=== PATIENT | female | born 1980 | race Caucasian/White ===

== ENCOUNTER → 2017-01-19 | Outpatient (CLI) | payer BC ==
--- NOTE | 2017-01-20 11:00 | VAS ---
HISTORY: Extremity pain, swelling, and edema Study: Left upper extremity Doppler venous ultrasound. TECHNIQUE: Multiple bautista scale and color flow Doppler images of the deep venous system were obtained of the upper extremity. FINDINGS: The deep venous system of the left upper extremity evaluated from the level of the internal jugular vein through the radial and ulnar veins. Normal color flow and augmentation can be observed . In addition, normal compression is seen throughout the upper extremity deep venous system. No soft tissue hematoma is seen. IMPRESSION: 1. Negative examination for DVT. Reported By:
== END ==
LOC: RAD 15:36
PROVIDERS: ATTEND Nurse Practitioner Family
DX: M79.602 Pain in left arm (principal); R22.32 Localized swelling, mass and lump, left upper limb
CPT/HCPCS: 93971

== ENCOUNTER 2017-07-18 20:44 | Observation (INO) | payer BC ==
--- NOTE | 2017-07-18 21:13 | DR.GENAD ---
HPI - PCP Primary Care Physician: NAEL - HPI Comment HPI Comment: PATIENT PCP GAVE HER PRESCRIPTION FOR MEDS BUT WORSE AND CAME TO ED. - Complaint/Symptoms Chief Complaint Doctors Comments: LUQ ABDOMINAL PAIN WITH N.V TIMES ONE DAY. PAIN GETTING WORSE. HISTORY DIVERTICULITIS. Chief Complaint:: PT CO LUQ PAIN NAUSEA NO VOMITING - Nurses notes reviewed Nurses Notes Review: Yes - Source History Provided: Patient - Mode of Arrival Mode of Arrival: Ambulatory - Timing Onset of Chief Complaint: 07/17/17 Came on: Suddenly - Duration Duration: Constant Duration: Days - Severity Severity: Moderate PMH - PMH Past Medical History: Yes Past Medical History: Hypertension, Hypothyroidism Past Medical History Comment: DIVERTICULITIS Past Surgical History: Yes Surgical History: - Family History History of Family Medical Conditions: Yes Family Medical History: Diabetes Mellitus, Cancer, [place], Coronary Artery Disease, Heart Failure, Hypertension - Social History Does patient currently use any type of tobacco product: No Have you used tobacco products in the last 12 months: No Type of Tobacco Use: None Does any household member use tobacco: No Alcohol Use: None Do you use any recreational Drugs:: No Lives With: Family Lives Where: Home - infectious screening In the last 2 months have you had wt loss of >10#?: NO Have you had fever, night sweats or hemotysis?: No Have you traveled outside the country in the last 6 months?: No Isolation: Standard ROS - Review of Systems Constitutional: No Symptoms Reported Eyes: No Symptoms Reported ENTM: No Symptoms Reported Respiratoy: No Symptoms Reported Cardiovascular: No Symptoms Reported Gastrointestinal/Abdominal: Abdominal Pain, Diarrhea, Nausea, Vomiting Genitourinary: No Symptoms Reported Neurological: No Symptoms Reported Musculoskeletal: No Symptoms Reported Integumentary: No Symptoms Reported Hematologic/Lymphatic: No Symptoms Reported Endocrine: No Symptoms Reported All Other Systems: Reviewed and Negative PE - Vital Signs Vitals: Temperature 98.2 F Pulse Rate 88 Respiratory Rate 18 Blood Pressure 128/70 O2 Sat by Pulse Oximetry 98 - General Limitations: No Limitations General Appearance: Alert - Head Head Exam: Normal Inspection - Eyes Eye exam: Normal Appearance - ENT ENT Exam: Normal External Ear Exam External Ear Exam: Normal External Inspection TM/Canal Exam: Bilateral Normal Nose Exam: Normal Nose Exam Mouth Exam: Normal Inspection Throat Exam: Normal Inspection - Neck Neck Exam: Trachea Midline - Chest Chest Inspection: Symmetric Chest Wall Rise - Respiratory Respiratory Exam: Normal Lung Sounds Bilat Respiratory Exam: Bilateral Clear to Auscultation - Cardiovascular Cardiovascular Exam: Regular Rate, Normal Rhythm, Normal Heart Sounds - Abdominal Exam Abdominal Exam: Normal Bowel Sounds, Soft. negative: Tenderness - Extremities Extremities Exam: Normal Inspection - Back Back Exam: Normal Inspection - Neurologic Neurological Exam: Alert, Oriented X3, CN II-XII Intact. negative: Motor Sensory Deficit - Psychiatric Psychiatric Exam: Normal Affect, Normal Mood - Skin Skin Exam: Normal Color MDM - Additional Information Additional Information Obtained From: Family - Differential Diagnosis Differential Diagnosis: ABDOMINAL PAIN, DEHYDRATION, DIVERTICULITIS, BOWEL OBSTRUCTION Course - Treatment Treatment: SEE ORDERS. - Consultation Consultation Comments: PATIENT ADMITTED TO DR SCHMIDT SERVICE. - Education/Counseling Education/Counseling: Patient, Family, Education Educated On: Treatment, Diagnosis, Needs for Follow Up ROR - Labs Reviewed Laboratory Results Reviewed?: Yes Result Diagrams: 07/19/17 05:43 07/19/17 05:43 Laboratory: WBC 18.0 X10^3/uL (3.6-10.0) H 07/18/17 21:05 RBC 4.29 X10^6/uL (3.5-5.4) 07/18/17 21:05 Hgb 12.5 g/dL (12.0-16.0) 07/18/17 21:05 Hct 36.9 % (36.0-47.0) 07/18/17 21:05 MCV 86.2 fL (80.0-100.0) 07/18/17 21:05 MCH 29.1 pg (27.0-34.0) 07/18/17 21:05 MCHC 33.8 g/dL (33.0-35.0) 07/18/17 21:05 RDW 14.0 % (11.6-16.5) 07/18/17 21:05 Plt Count 464 X10^3/uL (150.0-450.0) H 07/18/17 21:05 MPV 7.1 fL (7.4-11.0) L 07/18/17 21:05 Neut % (Auto) 59.7 % (42.0-75.0) 07/18/17 21:05 Lymph % (Auto) 33.6 % (21.0-51.0) 07/18/17 21:05 [place] % (Auto) 5.8 % (0.0-13.0) 07/18/17 21:05 Eos % (Auto) 0.4 % (0.9-2.9) L 07/18/17 21:05 Baso % (Auto) 0.5 % (0.2-1.0) 07/18/17 21:05 Neut # (Auto) 10.7 x10^3/uL (2.2-4.8) H 07/18/17 21:05 Lymph # (Auto) 6.0 X10^3/uL (1.3-2.9) H 07/18/17 21:05 [place] # (Auto) 1.0 x10^3/uL (0.3-0.8) H 07/18/17 21:05 Eos # (Auto) 0.1 x10^3/uL (0.0-0.2) 07/18/17 21:05 Baso # (Auto) 0.1 X10^3/uL (0.0-0.1) 07/18/17 21:05 Absolute Nucleated RBC 0.1 /100WBC 07/18/17 21:05 Sodium 136 mmol/L (136-145) 07/18/17 21:05 Corrected Sodium TNP 07/18/17 21:05 Potassium 3.8 mmol/L (3.5-5.1) 07/18/17 21:05 Chloride 100 mmol/L (98-107) 07/18/17 21:05 Carbon Dioxide 29.0 mmol/L (21-32) 07/18/17 21:05 BUN 15 mg/dL (7-18) 07/18/17 21:05 Creatinine 1.00 mg/dL (0.55-1.02) 07/18/17 21:05 Est GFR (MDRD) Af Amer > 60 (>60) 07/18/17 21:05 Est GFR (MDRD) Non-Af > 60 (>60) 07/18/17 21:05 Glucose 103 mg/dL (65-99) H 07/18/17 21:05 Calcium 8.0 mg/dL (8.5-10.1) L 07/18/17 21:05 Corrected Calcium TNP 07/18/17 21:05 Total Bilirubin 0.40 mg/dL (0.2-1.0) 07/18/17 21:05 AST 32 Units/L (15-37) 07/18/17 21:05 ALT 69 Units/L (12-78) 07/18/17 21:05 Alkaline Phosphatase 99 Units/L (46-116) 07/18/17 21:05 Total Protein 7.2 g/dL (6.4-8.2) 07/18/17 21:05 Albumin 3.4 g/dL (3.4-5.0) 07/18/17 21:05 Globulin 3.8 g/dL (2.5-4.5) 07/18/17 21:05 Albumin/Globulin Ratio 0.9 Ratio (1.1-2.1) L 07/18/17 21:05 Amylase 50 Units/L (25-115) 07/18/17 21:05 Lipase 160 Units/L (73-393) 07/18/17 21:05 Specimen Type Clean catch urine 07/18/17 22:14 Urine Color Yellow (YELLOW) 07/18/17 22:14 Urine Appearance Clear (CLEAR) 07/18/17 22:14 Urine pH 6.0 (5.0 - 8.0) 07/18/17 22:14 Ur Specific [place] 1.015 (1.000-1.030) 07/18/17 22:14 Urine Protein Negative (NEGATIVE) 07/18/17 22:14 Urine Glucose (UA) Negative (NEGATIVE) 07/18/17 22:14 Urine Ketones Negative (NEGATIVE) 07/18/17 22:14 Urine Occult Blood Negative (NEGATIVE) 07/18/17 22:14 Urine Nitrite Negative (NEGATIVE) 07/18/17 22:14 Urine Bilirubin Negative (NEGATIVE) 07/18/17 22:14 Urine Urobilinogen Normal (NORMAL) 07/18/17 22:14 Ur Leukocyte Esterase Negative (NEGATIVE) 07/18/17 22:14 H. pylori IgG Antibody Positive (NEGATIVE) A 07/18/17 21:05 - XRAY XRAY Interpreted by: Radiologist XRAY Findings: REPORT DISCUSS WITH PATIENT. - Diagnosis Discharge Problem: Helicobacter pylori ab+ Abdominal pain Qualifiers: Abdominal location: left upper quadrant Qualified Code(s): R10.12 - Left upper quadrant pain Leukocytosis Qualifiers: Leukocytosis type: unspecified Qualified Code(s): D72.829 - Elevated white blood cell count, unspecified - Discharge Plan Disposition: 09 ADMITTED INPATIENT Condition: Stable - Follow ups/Referrals - Instructions
[2017-07-18 21:23] LABS: BASOPHILS # (AUTO) 0.1 X10^3/uL (0.0-0.1); BASOPHILS % (AUTO) 0.5 % (0.2-1.0); EOSINOPHILS # (AUTO) 0.1 x10^3/uL (0.0-0.2); EOSINOPHILS % (AUTO) 0.4 % (0.9-2.9); HEMATOCRIT 36.9 % (36.0-47.0); HEMOGLOBIN 12.5 g/dL (12.0-16.0); LYMPHOCYTES % (AUTO) 33.6 % (21.0-51.0); MEAN CORPUSCULAR HEMOGLOBIN 29.1 pg (27.0-34.0); MEAN CORPUSCULAR HGB CONC 33.8 g/dL (33.0-35.0); MEAN CORPUSCULAR VOLUME 86.2 fL (80.0-100.0); MEAN PLATELET VOLUME 7.1 fL (7.4-11.0); MONOCYTES % (AUTO) 5.8 % (0.0-13.0); NEUTROPHILS # (AUTO) 10.7 x10^3/uL (2.2-4.8); NEUTROPHILS % (AUTO) 59.7 % (42.0-75.0); PLATELET COUNT 464 X10^3/uL (150.0-450.0); RED BLOOD COUNT 4.29 X10^6/uL (3.5-5.4)
[2017-07-18] MEDS ORDERED: NS 1000 ML 1,000 ML IV ONE (21:24)
[2017-07-18] MEDS ORDERED: ZOFRAN INJ 4 MG VIAL IVP ONE (21:24)
[2017-07-18] MEDS ORDERED: DEMEROL INJ IVP ONE (21:26)
[2017-07-18] MEDS ORDERED: NS 1000 ML 1,000 ML ONE (21:28)
[2017-07-18] MEDS ORDERED: DEMEROL INJ ONE (21:29)
[2017-07-18] MEDS ORDERED: ZOFRAN INJ 4 MG VIAL ONE (21:29)
[2017-07-18 21:35] LABS: ALANINE AMINOTRANSFERASE 69 Units/L (12-78); ALBUMIN 3.4 g/dL (3.4-5.0); ALKALINE PHOSPHATASE 99 Units/L (46-116); AMYLASE 50 Units/L (25-115); ASPARTATE AMINO TRANSFERASE 32 Units/L (15-37); BLOOD UREA NITROGEN 15 mg/dL (7-18); CHLORIDE 100 mmol/L (98-107); LIPASE 160 Units/L (73-393); SODIUM 136 mmol/L (136-145); TOTAL PROTEIN 7.2 g/dL (6.4-8.2); eGFR BLACK RACES > 60 (>60); eGFR NON BLACK RACES > 60 (>60)
[2017-07-18 22:25] LABS: BILIRUBIN,URINE NEGATIVE (NEGATIVE); BLOOD/HEMOGLOBIN,URINE NEGATIVE (NEGATIVE); GLUCOSE, URINE NEGATIVE (NEGATIVE); KETONES,URINE NEGATIVE (NEGATIVE); LEUKOCYTE ESTERASE ,URINE NEGATIVE (NEGATIVE); NITRITES,URINE NEGATIVE (NEGATIVE); PROTEIN,URINE NEGATIVE (NEGATIVE); UROBILINOGEN,URINE NORMAL (NORMAL)
[2017-07-18 22:28] LABS: APPEARANCE,URINE CLEAR (CLEAR); COLOR,URINE YELLOW (YELLOW)
--- NOTE | 2017-07-18 22:38 | CT ---
CT abdomen and pelvis without contrast Indication: Left upper quadrant pain, nausea. Comparison: None Technique: CT images of the abdomen and pelvis were obtained without contrast. Automatic exposure con trol was utilized. Findings: The lung bases are grossly clear. No acute skeletal abnormality. Evaluation is limited without contrast. The liver is mildly steatotic, but normal in size and configu ration, without evidence for focal lesion. Within the limitations of a noncontrast study, the gallbla dder, spleen, stomach, duodenum, pancreas, adrenals, and kidneys are unremarkable. No significant thi ckening or dilatation of the lower GI tract identified. The appendix is normal. The uterus and ovarie s are noted. Calcified fibroid measuring approximately 1.4 cm is noted. The urinary bladder and rectu m are unremarkable. No free fluid or adenopathy. Impression: No acute process to account for patient's symptoms. Mild hepatic steatosis. Small uterine fibroid. Reported By:
[2017-07-18] MEDS ORDERED: ZOFRAN INJ 4 MG VIAL IVP PRN (23:27)
[2017-07-18] MEDS ORDERED: PEPCID 20 MG IV PREMIX* 20 MG/50 ML BAG IV PRN (23:27)
[2017-07-18] MEDS: CIPRO IV 400 MG PREMIX* 400 MG/200 ML IV.SOLN. IV SCH (23:47)
[2017-07-18] MEDS: MORPHINE SULFATE INJ 2 MG INJ IVP PRN (23:58)
[2017-07-18] MEDS: PHENERGAN INJ 25 MG IV PRN (23:59)
[2017-07-19] MEDS: FLAGYL IV PREMIX 500 MG BAG 500 MG/100 ML BAG IV SCH ×4 (03:11→21:16)
[2017-07-19] MEDS: MORPHINE SULFATE INJ 2 MG INJ IVP PRN ×2 (04:19→08:19)
[2017-07-19 06:10] LABS: BASOPHILS # (AUTO) 0.1 X10^3/uL (0.0-0.1); BASOPHILS % (AUTO) 0.6 % (0.2-1.0); EOSINOPHILS # (AUTO) 0.1 x10^3/uL (0.0-0.2); EOSINOPHILS % (AUTO) 0.7 % (0.9-2.9); HEMATOCRIT 33.1 % (36.0-47.0); HEMOGLOBIN 11.2 g/dL (12.0-16.0); LYMPHOCYTES # (AUTO) 4.6 X10^3/uL (1.3-2.9); LYMPHOCYTES % (AUTO) 36.6 % (21.0-51.0); MEAN CORPUSCULAR HEMOGLOBIN 29.2 pg (27.0-34.0); MEAN CORPUSCULAR HGB CONC 33.9 g/dL (33.0-35.0); MEAN CORPUSCULAR VOLUME 86.1 fL (80.0-100.0); MEAN PLATELET VOLUME 7.1 fL (7.4-11.0); MONOCYTES # (AUTO) 0.7 x10^3/uL (0.3-0.8); MONOCYTES % (AUTO) 5.3 % (0.0-13.0); NEUTROPHILS # (AUTO) 7.1 x10^3/uL (2.2-4.8); NEUTROPHILS % (AUTO) 56.8 % (42.0-75.0); PLATELET COUNT 387 X10^3/uL (150.0-450.0); RED BLOOD COUNT 3.84 X10^6/uL (3.5-5.4); WHITE BLOOD COUNT 12.5 X10^3/uL (3.6-10.0)
[2017-07-19 06:19] LABS: ALANINE AMINOTRANSFERASE 61 Units/L (12-78); ALBUMIN 2.8 g/dL (3.4-5.0); ALKALINE PHOSPHATASE 89 Units/L (46-116); AMYLASE 39 Units/L (25-115); ASPARTATE AMINO TRANSFERASE 30 Units/L (15-37); BLOOD UREA NITROGEN 12 mg/dL (7-18); CALCIUM 7.4 mg/dL (8.5-10.1); CARBON DIOXIDE 29.8 mmol/L (21-32); CHLORIDE 105 mmol/L (98-107); COR CA(FOR HYPOALB) 8.4 mg/dL (8.5-10.1); CREATININE 0.88 mg/dL (0.55-1.02); LIPASE 110 Units/L (73-393); SODIUM 140 mmol/L (136-145); TOTAL PROTEIN 6.1 g/dL (6.4-8.2); eGFR BLACK RACES > 60 (>60); eGFR NON BLACK RACES > 60 (>60)
[2017-07-19] MEDS: CIPRO IV 400 MG PREMIX* 400 MG/200 ML IV.SOLN. IV SCH ×2 (08:44→21:16)
[2017-07-19] MEDS: NS 1000 ML 1,000 ML IV SCH ×4 (10:27→21:17)
[2017-07-19] MEDS: PROTONIX INJ 40 MG VIAL IVP SCH ×2 (10:28→21:16)
[2017-07-19] MEDS: LEVSIN/MAALOX/LIDOC VISC PO SCH ×4 (11:41→21:15)
[2017-07-19] MEDS ORDERED: PATIENT'S HOME MEDICATION (Escitalopram Oxalate [Lexapro 20 Mg] 1 TAB) PO SCH (13:15)
[2017-07-19] MEDS ORDERED: PATIENT'S HOME MEDICATION PO SCH (13:30)
[2017-07-19] MEDS ORDERED: LEXAPRO ONE (13:36)
[2017-07-19] MEDS: CARDIZEM SR 120 MG PO SCH (13:41)
[2017-07-19] MEDS: LEXAPRO PO SCH (13:41)
[2017-07-19] MEDS: ZESTRIL TAB 10 MG PO SCH (13:41)
[2017-07-19] MEDS: SYNTHROID 75 mcg TAB PO SCH (13:41)
[2017-07-19] MEDS: DEMEROL INJ IVP PRN ×3 (13:41→22:42)
[2017-07-19] MEDS ORDERED: CARDIZEM SR 120 MG PO SCH (14:00)
[2017-07-20] MEDS: FLAGYL IV PREMIX 500 MG BAG 500 MG/100 ML BAG IV SCH ×4 (02:56→20:03)
[2017-07-20] MEDS: DEMEROL INJ IVP PRN ×3 (03:16→20:18)
[2017-07-20] MEDS: NS 1000 ML 1,000 ML IV SCH ×3 (06:03→18:14)
[2017-07-20 06:13] LABS: BASOPHILS % (AUTO) 0.4 % (0.2-1.0); EOSINOPHILS # (AUTO) 0.1 x10^3/uL (0.0-0.2); EOSINOPHILS % (AUTO) 1.1 % (0.9-2.9); HEMATOCRIT 33.9 % (36.0-47.0); HEMOGLOBIN 11.5 g/dL (12.0-16.0); LYMPHOCYTES # (AUTO) 3.2 X10^3/uL (1.3-2.9); LYMPHOCYTES % (AUTO) 34.2 % (21.0-51.0); MEAN CORPUSCULAR HEMOGLOBIN 29.4 pg (27.0-34.0); MEAN CORPUSCULAR VOLUME 86.4 fL (80.0-100.0); MEAN PLATELET VOLUME 7.2 fL (7.4-11.0); MONOCYTES # (AUTO) 0.7 x10^3/uL (0.3-0.8); MONOCYTES % (AUTO) 7.7 % (0.0-13.0); NEUTROPHILS # (AUTO) 5.4 x10^3/uL (2.2-4.8); NEUTROPHILS % (AUTO) 56.6 % (42.0-75.0); PLATELET COUNT 358 X10^3/uL (150.0-450.0); RED BLOOD COUNT 3.92 X10^6/uL (3.5-5.4); RED CELL DISTRIBUTION WIDTH 14.1 % (11.6-16.5); WHITE BLOOD COUNT 9.5 X10^3/uL (3.6-10.0)
[2017-07-20 06:26] LABS: ALANINE AMINOTRANSFERASE 65 Units/L (12-78); ALBUMIN 2.8 g/dL (3.4-5.0); ALKALINE PHOSPHATASE 92 Units/L (46-116); ASPARTATE AMINO TRANSFERASE 36 Units/L (15-37); BLOOD UREA NITROGEN 9 mg/dL (7-18); CALCIUM 7.9 mg/dL (8.5-10.1); CARBON DIOXIDE 30.3 mmol/L (21-32); CHLORIDE 103 mmol/L (98-107); COR CA(FOR HYPOALB) 8.9 mg/dL (8.5-10.1); CREATININE 0.96 mg/dL (0.55-1.02); SODIUM 138 mmol/L (136-145); TOTAL PROTEIN 6.3 g/dL (6.4-8.2); eGFR BLACK RACES > 60 (>60); eGFR NON BLACK RACES > 60 (>60)
--- NOTE | 2017-07-20 08:11 | DR.H&P ---
H&P - History & Physical for Day of: H&P Date: 07/18/17 - Chief Complaint Chief Complaint: abdominal pain - Allergies Allergies/Adverse Reactions: Allergies Allergy/AdvReac Type Severity Reaction Status Date / Time No Known Drug Allergies Allergy Verified 07/19/17 01:00 - History of Present Illness History of Present Illness: is a 36 year old patient of ours who presented to the emergency room with reports of abdominal pain. Patient reports symptoms started suddenly yesterday and became worse today. Patient reports that pain is moderate, located in the left upper quadrant, and has associated nausea. On arrival, vitals were 98.2, 88, 18, 98% RA, 128/70. Labs were obtained. Abnormal lab values include the following: Abnormal Labs: WBC 18.0, Plt Count 464, MPV 7.1, Glucose 103, Calcium 8.0, A/G Ratio 0.9, H.Pylori Positive. A CT of the abdomen and pelvis was obtained and revealed No acute process to account for patient's symptoms. Mild hepatic steatosis. Small uterine fibroid. Patient given Zofran 4mg IV and Demerol 25mg IV both x1 with continued reports of pain and nausea. Patient admitted to the hospital as observation for further evaluation and treatment. We plan to follow up with labs in the morning and continue to monitor patient. - Past Medical History Past Medical History: Hypertension, Hypothyroidism Additional Medical History: hx: diverticulitis - Past Surgical History Surgical History: - Family History Family Medical History: Diabetes Mellitus, Cancer, [place], Coronary Artery Disease, Heart Failure, Hypertension - Social History Does patient currently use any type of tobacco product: No Have you used tobacco products in the last 12 months: No Type of Tobacco Use: None Does any household member use tobacco: No Alcohol Use: None Drug Use: None - Medications Home Medications: Aspirin [Adult Low Dose Aspirin EC] 1 tab PO DAILY 07/19/17 [History Confirmed 07/19/17] Escitalopram Oxalate [Lexapro 20 mg] 1 tab PO DAILY 07/19/17 [History Confirmed 07/19/17] Levothyroxine Sodium 1 tab PO DAILY 07/19/17 [History Confirmed 07/19/17] Lisinopril [ZESTRIL *] 1 tab PO DAILY 07/19/17 [History Confirmed 07/19/17] [facility] [place] [facility] Med [Patient's Home Medication] 1 tab PO DAILY 07/19/17 [History Confirmed 07/19/17] - Review of Systems Constitutional: No Symptoms Reported Eyes: No Symptoms Reported ENT: No Symptoms Reported Respiratory: No Symptoms Reported Cardiovascular: No Symptoms Reported Gastrointestinal: Nausea, Vomiting, Abdominal Pain, Diarrhea. denies: Constipation, Melena, Hematochezia Genitourinary: No Symptoms Reported Musculoskeletal: No Symptoms Reported Skin: No Symptoms Reported Neurological: No Symptoms Reported - Physical Exam Vital Signs: Temperature 97.7 F Pulse Rate [Left Brachial] 79 Pulse Rate 88 Respiratory Rate 18 Blood Pressure [Left Arm] 100/56 Blood Pressure 128/70 O2 Sat by Pulse Oximetry 97 Oriented: Normal Eyes: Normal Ear: Normal Nose: Normal Throat: Normal Respiratory: Clear Throughout Cardiovascular: Normal : Normal Auscultation: Bowel Sounds: Normal Palpation: Normal Tenderness: Normal Skin: Normal Musculoskeletal: Normal Psychiatric: Normal Mood Description: Calm Affect: Normal Speech Pattern: Clear - Assessment/Plan (1) Abdominal pain Qualifiers: Abdominal location: left upper quadrant Qualified Code(s): R10.12 - Left upper quadrant pain Status: Acute Plan: admit, iv fluids, pepcid, protonix, gi cocktail, pain control, continue to monitor (2) Helicobacter pylori ab+ Status: Acute Plan: pepcid, protonix, gi cocktail, continue to monitor (3) Leukocytosis Qualifiers: Leukocytosis type: unspecified Qualified Code(s): D72.829 - Elevated white blood cell count, unspecified Status: Acute Plan: iv cipro, iv flagyl, continue to monitor
--- NOTE | 2017-07-20 08:28 | PCM.PROG ---
Progress Note - Progress Note for Day of Date: 07/19/17 - Subjective Subjective: WAS ADMITTED FOR ABDOMINAL PAIN AND H-PYLORI. TODAY, SHE IS ALERT AND ORIENTED, LYING IN BED ON MORNING ROUNDS. SHE CONTINUES WITH LLQ ABDOMINAL PAIN THAT RADIATES TO THE FLANK AND LOWER BACK. HER VITALS TODAY ARE 98.2-79-17-98%-141/62. ABNORMAL LAB VALUES INCLUDE THE FOLLOWING: WBC 12.5, HGB 11.2, HCT 33.1, GLUCOSE 103, CALCIUM 7.4, TOTAL PROTEIN 6.1, ALBUMIN 2.8. PATIENT REPORTS THAT THE MORPHINE DOES NOT CONTROL HER PAIN. TODAY, WE WILL START GI COCKTAIL 15ML PO QID AND DEMEROL 25MG IV Q4H PRN. OTHERWISE, WE WILL FOLLOW UP WITH AM LABS AND CONTINUE TO MONITOR PATIENT. - Past Medical Family Social History Past Med/Fam/Surg Hx: No changes since H&P Allergies: Allergies No Known Drug Allergies Allergy (Verified 07/19/17 01:00) - Review of Systems ROS: No change since H&P - Vital Signs and I&O's Vital Signs: Temperature 97.7 F Pulse Rate [Left Brachial] 79 Pulse Rate 88 Respiratory Rate 18 Blood Pressure [Left Arm] 100/56 Blood Pressure 128/70 O2 Sat by Pulse Oximetry 97 Intake and Output: Intake & Output 07/17/17 07/18/17 07/19/17 07/20/17 11:59 11:59 11:59 11:59 Intake Total 800 3779 Output Total 0 0 Balance 800 3779 - Physical Exam Oriented: Normal Eyes: Normal Ear: Normal Nose: Normal Throat: Normal Respiratory: Normal Cardiovascular: Normal : Normal Auscultation: Bowel Sounds: Normal Palpation: Normal Tenderness: LLQ, Mild. negative: Rebound, Guarding, Rigidity Skin: Normal Musculoskeletal: Back:Lumbar, Tender Psychiatric: Normal Mood Description: Calm Affect: Normal Speech Pattern: Clear - Laboratory and Diagnostics Result Diagrams: 07/20/17 05:25 07/20/17 05:25 Labs: Laboratory WBC 9.5 X10^3/uL (3.6-10.0) 07/20/17 05:25 RBC 3.92 X10^6/uL (3.5-5.4) 07/20/17 05:25 Hgb 11.5 g/dL (12.0-16.0) L 07/20/17 05:25 Hct 33.9 % (36.0-47.0) L 07/20/17 05:25 MCV 86.4 fL (80.0-100.0) 07/20/17 05:25 MCH 29.4 pg (27.0-34.0) 07/20/17 05:25 MCHC 34.0 g/dL (33.0-35.0) 07/20/17 05:25 RDW 14.1 % (11.6-16.5) 07/20/17 05:25 Plt Count 358 X10^3/uL (150.0-450.0) 07/20/17 05:25 MPV 7.2 fL (7.4-11.0) L 07/20/17 05:25 Neut % (Auto) 56.6 % (42.0-75.0) 07/20/17 05:25 Lymph % (Auto) 34.2 % (21.0-51.0) 07/20/17 05:25 [place] % (Auto) 7.7 % (0.0-13.0) 07/20/17 05:25 Eos % (Auto) 1.1 % (0.9-2.9) 07/20/17 05:25 Baso % (Auto) 0.4 % (0.2-1.0) 07/20/17 05:25 Neut # (Auto) 5.4 x10^3/uL (2.2-4.8) H 07/20/17 05:25 Lymph # (Auto) 3.2 X10^3/uL (1.3-2.9) H 07/20/17 05:25 [place] # (Auto) 0.7 x10^3/uL (0.3-0.8) 07/20/17 05:25 Eos # (Auto) 0.1 x10^3/uL (0.0-0.2) 07/20/17 05:25 Baso # (Auto) 0.0 X10^3/uL (0.0-0.1) 07/20/17 05:25 Absolute Nucleated RBC 0.0 /100WBC 07/20/17 05:25 Sodium 138 mmol/L (136-145) 07/20/17 05:25 Corrected Sodium TNP 07/20/17 05:25 Potassium 4.8 mmol/L (3.5-5.1) 07/20/17 05:25 Chloride 103 mmol/L (98-107) 07/20/17 05:25 Carbon Dioxide 30.3 mmol/L (21-32) 07/20/17 05:25 BUN 9 mg/dL (7-18) 07/20/17 05:25 Creatinine 0.96 mg/dL (0.55-1.02) 07/20/17 05:25 Est GFR (MDRD) Af Amer > 60 (>60) 07/20/17 05:25 Est GFR (MDRD) Non-Af > 60 (>60) 07/20/17 05:25 Glucose 104 mg/dL (65-99) H 07/20/17 05:25 Calcium 7.9 mg/dL (8.5-10.1) L 07/20/17 05:25 Corrected Calcium 8.9 mg/dL (8.5-10.1) 07/20/17 05:25 Total Bilirubin 0.50 mg/dL (0.2-1.0) 07/20/17 05:25 AST 36 Units/L (15-37) 07/20/17 05:25 ALT 65 Units/L (12-78) 07/20/17 05:25 Alkaline Phosphatase 92 Units/L (46-116) 07/20/17 05:25 Total Protein 6.3 g/dL (6.4-8.2) L 07/20/17 05:25 Albumin 2.8 g/dL (3.4-5.0) L 07/20/17 05:25 Globulin 3.5 g/dL (2.5-4.5) 07/20/17 05:25 Albumin/Globulin Ratio 0.8 Ratio (1.1-2.1) L 07/20/17 05:25 Amylase 39 Units/L (25-115) 07/19/17 05:43 Lipase 110 Units/L (73-393) 07/19/17 05:43 Specimen Type Clean catch urine 07/18/17 22:14 Urine Color Yellow (YELLOW) 07/18/17 22:14 Urine Appearance Clear (CLEAR) 07/18/17 22:14 Urine pH 6.0 (5.0 - 8.0) 07/18/17 22:14 Ur Specific [place] 1.015 (1.000-1.030) 07/18/17 22:14 Urine Protein Negative (NEGATIVE) 07/18/17 22:14 Urine Glucose (UA) Negative (NEGATIVE) 07/18/17 22:14 Urine Ketones Negative (NEGATIVE) 07/18/17 22:14 Urine Occult Blood Negative (NEGATIVE) 07/18/17 22:14 Urine Nitrite Negative (NEGATIVE) 07/18/17 22:14 Urine Bilirubin Negative (NEGATIVE) 07/18/17 22:14 Urine Urobilinogen Normal (NORMAL) 07/18/17 22:14 Ur Leukocyte Esterase Negative (NEGATIVE) 07/18/17 22:14 H. pylori IgG Antibody Positive (NEGATIVE) A 07/18/17 21:05 - Plan (1) Abdominal pain Status: Acute Qualifiers: Abdominal location: left upper quadrant Qualified Code(s): R10.12 - Left upper quadrant pain Plan: admit, iv fluids, pepcid, protonix, gi cocktail, pain control, continue to monitor (2) Helicobacter pylori ab+ Status: Acute Plan: pepcid, protonix, gi cocktail, continue to monitor (3) Leukocytosis Status: Acute Qualifiers: Leukocytosis type: unspecified Qualified Code(s): D72.829 - Elevated white blood cell count, unspecified Plan: iv cipro, iv flagyl, continue to monitor
[2017-07-20] MEDS ORDERED: LEXAPRO ONE (08:40)
[2017-07-20] MEDS: SYNTHROID 75 mcg TAB PO SCH (08:54)
[2017-07-20] MEDS: LEXAPRO PO SCH (08:54)
[2017-07-20] MEDS: CARDIZEM SR 120 MG PO SCH (08:54)
[2017-07-20] MEDS: ZESTRIL TAB 10 MG PO SCH (08:55)
[2017-07-20] MEDS: PROTONIX INJ 40 MG VIAL IVP SCH ×2 (08:56→20:04)
[2017-07-20] MEDS: LEVSIN/MAALOX/LIDOC VISC PO SCH ×4 (09:06→20:17)
[2017-07-20] MEDS: PHENERGAN INJ 25 MG IV PRN ×3 (09:08→20:57)
[2017-07-20] MEDS: CIPRO IV 400 MG PREMIX* 400 MG/200 ML IV.SOLN. IV SCH ×2 (09:52→20:03)
[2017-07-20 10:03] VITALS: BMI 46.2
[2017-07-20] MEDS ORDERED: ZOFRAN INJ 4 MG VIAL IVP PRN (11:53)
[2017-07-21] MEDS: NS 1000 ML 1,000 ML IV SCH ×2 (01:26→12:39)
[2017-07-21] MEDS: FLAGYL IV PREMIX 500 MG BAG 500 MG/100 ML BAG IV SCH ×2 (02:49→09:46)
[2017-07-21 06:08] LABS: BASOPHILS # (AUTO) 0.1 X10^3/uL (0.0-0.1); BASOPHILS % (AUTO) 0.7 % (0.2-1.0); EOSINOPHILS # (AUTO) 0.1 x10^3/uL (0.0-0.2); EOSINOPHILS % (AUTO) 1.1 % (0.9-2.9); HEMATOCRIT 35.1 % (36.0-47.0); HEMOGLOBIN 11.9 g/dL (12.0-16.0); LYMPHOCYTES # (AUTO) 2.6 X10^3/uL (1.3-2.9); LYMPHOCYTES % (AUTO) 26.6 % (21.0-51.0); MEAN CORPUSCULAR HEMOGLOBIN 29.3 pg (27.0-34.0); MEAN CORPUSCULAR HGB CONC 33.9 g/dL (33.0-35.0); MEAN CORPUSCULAR VOLUME 86.5 fL (80.0-100.0); MEAN PLATELET VOLUME 7.2 fL (7.4-11.0); MONOCYTES # (AUTO) 0.7 x10^3/uL (0.3-0.8); MONOCYTES % (AUTO) 7.3 % (0.0-13.0); NEUTROPHILS # (AUTO) 6.2 x10^3/uL (2.2-4.8); NEUTROPHILS % (AUTO) 64.3 % (42.0-75.0); PLATELET COUNT 307 X10^3/uL (150.0-450.0); RED BLOOD COUNT 4.06 X10^6/uL (3.5-5.4); RED CELL DISTRIBUTION WIDTH 13.8 % (11.6-16.5); WHITE BLOOD COUNT 9.7 X10^3/uL (3.6-10.0)
[2017-07-21 06:53] LABS: ALANINE AMINOTRANSFERASE 59 Units/L (12-78); ALBUMIN 2.9 g/dL (3.4-5.0); ALKALINE PHOSPHATASE 91 Units/L (46-116); ASPARTATE AMINO TRANSFERASE 28 Units/L (15-37); BLOOD UREA NITROGEN 8 mg/dL (7-18); CALCIUM 7.7 mg/dL (8.5-10.1); CARBON DIOXIDE 29.1 mmol/L (21-32); CHLORIDE 103 mmol/L (98-107); COR CA(FOR HYPOALB) 8.6 mg/dL (8.5-10.1); CREATININE 1.01 mg/dL (0.55-1.02); SODIUM 138 mmol/L (136-145); TOTAL PROTEIN 6.5 g/dL (6.4-8.2); eGFR BLACK RACES > 60 (>60); eGFR NON BLACK RACES > 60 (>60)
[2017-07-21] MEDS ORDERED: LEXAPRO ONE (08:20)
[2017-07-21] MEDS: LEXAPRO PO SCH (08:23)
[2017-07-21] MEDS: PROTONIX INJ 40 MG VIAL IVP SCH (08:23)
[2017-07-21] MEDS: CIPRO IV 400 MG PREMIX* 400 MG/200 ML IV.SOLN. IV SCH (08:23)
[2017-07-21] MEDS: SYNTHROID 75 mcg TAB PO SCH (08:23)
[2017-07-21] MEDS: CARDIZEM SR 120 MG PO SCH (08:23)
[2017-07-21] MEDS: ZESTRIL TAB 10 MG PO SCH (08:23)
[2017-07-21] MEDS: LEVSIN/MAALOX/LIDOC VISC PO SCH (09:09)
[2017-07-21 12:11] VITALS: BP 113/57
== END 2017-07-21 12:44 | disposition home or self-care (01) ==
LOC: ER 21:01 → OBS 23:24
PROVIDERS: ADMIT Internal Medicine; ATTEND Internal Medicine
DX: R10.84 Generalized abdominal pain (principal); D72.828 Other elevated white blood cell count; B96.81 Helicobacter pylori [H. pylori] as the cause of diseases classified elsewhere; R10.12 Left upper quadrant pain; Z79.899 Other long term (current) drug therapy
CPT/HCPCS: 36415; 36591; 74176; 80053; 81003; 82150; 83690; 85025; 86677; 96365; 96374; 96375; 99283; 99284; A4222; C9113; S0028; S0030; G0378; J0744; J2175; J2270; J2405; J2550

== ENCOUNTER → 2017-07-25 | Outpatient (CLI) | payer BC ==
[2017-07-21 12:11] VITALS: BP 113/57
--- NOTE | 2017-07-25 14:13 | RAD ---
STUDY: CHEST, TWO VIEWS History: Chest pain on breathing. Comparison: April 02, 2015. Findings: The trachea is midline. The lungs are clear of consolidation, significant infiltrate, effusion, or pn eumothorax. The cardiac silhouette, mediastinum and osseous structures are unremarkable. IMPRESSION: 1. No evidence of acute cardiopulmonary abnormality. Reported By:
== END ==
LOC: RAD 13:50
PROVIDERS: ATTEND Nurse Practitioner Family
DX: R07.1 Chest pain on breathing (principal)
CPT/HCPCS: 71046

== ENCOUNTER → 2017-07-27 | Outpatient (CLI) | payer BC ==
[2017-07-21 12:11] VITALS: BP 113/57
--- NOTE | 2017-07-27 09:34 | VAS ---
HISTORY: Pain and edema to right forearm region Study: Venous Doppler of the right upper extremity Comparison: 01/19/2017, left upper extremity only. Technique: Grayscale, duplex and color Doppler imaging of the right upper extremity is provided. Findings: There is good color and duplex flow involving the right jugular, subclavian and axillary veins. Good flow is also seen within the right basilic vein. The right brachial vein is filled with visible and i ncompressible thrombus material. Minimal flow is seen involving the right ulnar vein. IMPRESSION: Extensive venous thrombosis involving the right brachial vein. Reported By:
[2017-07-27 11:57] LABS: ALANINE AMINOTRANSFERASE 54 Units/L (12-78); ALBUMIN 3.2 g/dL (3.4-5.0); ALKALINE PHOSPHATASE 86 Units/L (46-116); ASPARTATE AMINO TRANSFERASE 38 Units/L (15-37); BLOOD UREA NITROGEN 11 mg/dL (7-18); CALCIUM 7.9 mg/dL (8.5-10.1); CARBON DIOXIDE 28.1 mmol/L (21-32); CHLORIDE 104 mmol/L (98-107); COR CA(FOR HYPOALB) 8.5 mg/dL (8.5-10.1); COR NA(FOR HYPERGLY) 140 mmol/L (136-145); CREATININE 0.93 mg/dL (0.55-1.02); SODIUM 139 mmol/L (136-145); eGFR BLACK RACES > 60 (>60); eGFR NON BLACK RACES > 60 (>60)
--- NOTE | 2017-07-27 13:27 | CT ---
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 Study: CTA chest Comparison: Chest x-ray done 07/25/2017. Technique: Multiple axial images of the chest were obtained from the thoracic inlet to the upper abdo men during the administration of IV contrast. In addition to standard multi planar reconstructions, M IP reconstructions were performed in axial, coronal and sagittal planes. Dose reduction techniques ut ilized automatic exposure control. Findings: The mediastinum does not demonstrate significant pathological lymphadenopathy. There is no pericardi al effusion observed. The thoracic aorta is normal in its contour without evidence for aneurysmal di latation. The central pulmonary arterial system does not demonstrate central filling defects to sugg est pulmonary emboli. Evaluation of the lung parenchyma reveals a very small left pleural effusion. This appears to be of i nsufficient size to be aspirated. There is minimal subsegmental atelectasis present in the left lung base. No consolidation is seen.. No pulmonary nodule or mass can be identified. The bony thorax is unremarkable in its appearance. There is fatty change present throughout the liver. The spleen appea rs to be at the upper limits of normal in size measuring 12.7 cm in maximum dimension. IMPRESSION: No evidence of thoracic aortic aneurysm or pulmonary embolus. Small left pleural effusion. There is minimal linear atelectasis present in the left lung base. The f usion is not of sufficient size to consider for aspiration. Fatty liver. Upper limits normal spleen size. Reported By:
== END | disposition home or self-care (01) | DRG 607 ==
LOC: RAD 08:37
PROVIDERS: ATTEND Nurse Practitioner Family
DX: R22.31 Localized swelling, mass and lump, right upper limb (principal); I82.621 Acute embolism and thrombosis of deep veins of right upper extremity
CPT/HCPCS: 36415; 71275; 80053; 93971; A4222

== ENCOUNTER 2022-05-05 09:21 | Observation (INO) ==
--- NOTE | 2022-05-05 09:33 | EKG ---
Test Reason : chest pain Blood Pressure : */* mmHG Vent. Rate : 70 BPM Atrial Rate : 70 BPM P-R Int : 176 ms QRS Dur : 80 ms QT Int : 406 ms P-R-T Axes : 13 1 7 degrees QTc Int : 438 ms Normal sinus rhythm Normal ECG No previous ECGs available Confirmed by Maximilian Oconnell ([id number]) on 05/05/2022 2:40:20 PM Referred By: Confirmed By: Maximilian Oconnell
[2022-05-05 09:37] VITALS: BMI 39.4
[2022-05-05] MEDS ORDERED: ASPIRIN 81 MG CHEWTAB PO STA (09:54)
[2022-05-05] MEDS ORDERED: ASPIRIN 81 MG CHEWTAB ONE (09:56)
--- NOTE | 2022-05-05 10:00 | DR.CP ---
HPI Time Seen Time Seen by Provider: 05/05/22 09:58 PCP Primary Care Physician: Kusum Alejandro Complaint Chief Complaint Doctor Comments: Patient has a h/o palpitations and takes eliquis for 3-4 yrs.Patient states that she was sitting down watching tv when the pain began in her left jaw yesterday afternoon.Patient states that the pain woke her up at night.She began to have restrosternal chest pain 10/14. Patient states that the pain radiated to her left arm.Patient denies: Fever,cough,nausea,vomiting,sob,syncope,back pain,h/o [place].h/o cardiac cath. Chief Complaint:: Patient states she started having left jaw pain last PM at 2300 hrs. Woke this am and started having chest pain and pressure left midclavicular radiating to left axillary. Patient states she had nausea last PM but it subsided anddenies at present. COVID-19 Coronavirus risk:travel/contact w/high risk person: No Has patient experienced Coronavirus symptoms: No Source History Provided: Patient and Family Member Mode of Arrival Mode of Arrival: Ambulatory Timing Onset of Chief Complaint: 05/04/22 Location Chest Pain Radiation Location: Left Jaw and Left Shoulder Associated Signs and Symptoms Associated Signs and Symptoms: None PMH PMH Past Medical History: Yes Past Medical History: Hypertension and Hypothyroidism Past Surgical History: Yes Surgical History: Family History History of Family Medical Conditions: Yes Family Medical History: Diabetes Mellitus, Cancer, [place], Coronary Artery Disease, Heart Failure and Hypertension Social History Does patient currently use any type of tobacco product: No Have you used tobacco products in the last 12 months: No Type of Tobacco Use: None Does any household member use tobacco: No Alcohol Use: None Do you use any recreational Drugs:: No Lives With: Spouse Lives Where: Home Travel Risk Coronavirus risk:travel/contact w/high risk person: No Has patient experienced Coronavirus symptoms: No Infectious screening In the last 2 months have you had wt loss of >10#?: NO Have you had fever, night sweats or hemotysis?: No Have you traveled outside the country in the last 6 months?: No Isolation: Standard ROS Review of Systems Constitutional: No Symptoms Reported Eyes: No Symptoms Reported ENTM: No Symptoms Reported Respiratoy: negative Non-Productive Cough or Short of Breath Cardiovascular: Chest Pain and Palpitations; negative Syncope Gastrointestinal/Abdominal: No Symptoms Reported Genitourinary: No Symptoms Reported Neurological: No Symptoms Reported Musculoskeletal: No Symptoms Reported Integumentary: No Symptoms Reported Hematologic/Lymphatic: No Symptoms Reported Endocrine: No Symptoms Reported Psychiatric: No Symptoms Reported All Other Systems: Reviewed and Negative PE Vitals Vitals: Temperature 98.2 F Pulse Rate 71 Respiratory Rate 25 Blood Pressure [Left Arm] 113/57 Blood Pressure 116/63 O2 Sat by Pulse Oximetry 100 General General Appearance: Alert and In No Apparent Distress Head Head Exam: Normocephalic Eyes Eye exam: Normal Appearance, PERRL and EOMI ENT ENT Exam: Normal Exam Chest Chest Inspection: Normal Inspection; negative Tenderness Cardiovascular Cardiovascular Exam: Regular Rate, Normal Rhythm, Normal Heart Sounds, +S1 and +S2; negative Systolic Murmur, Diastolic Murmur, Rubs or JVD Abdominal Exam Abdominal Exam: Normal Bowel Sounds and Soft Neurologic Neurological Exam: Alert, Oriented X3 and CN II-XII Intact; negative Motor Sensory Deficit MDM Differential Diagnosis Differential Diagnosis: Angina, Myocardial Infarction and Pneumonia COURSE Treatment Treatment: See orders while in ER Consultation Called: 12:10 Consultation Comments: Discussed case with Dr Jaime. He will accept patient for observation Education/Counseling Education/Counseling: Patient, Family, Education and Counseling Educated On: Treatment, Diagnosis, Prognosis, Needs for Follow Up and Other ROR Labs Reviewed Laboratory Results Reviewed?: Yes Result Diagrams: 05/05/22 09:47 05/05/22 09:47 Laboratory: WBC 7.6 X10^3/uL (3.6-10.0) 05/05/22 09:47 RBC 4.19 X10^6/uL (3.5-5.4) 05/05/22 09:47 Hgb 11.2 g/dL (12.0-16.0) L 05/05/22 09:47 Hct 33.7 % (36.0-47.0) L 05/05/22 09:47 MCV 80.5 fL (80.0-100.0) 05/05/22 09:47 MCH 26.8 pg (27.0-34.0) L 05/05/22 09:47 MCHC 33.3 g/dL (33.0-35.0) 05/05/22 09:47 RDW 15.3 % (11.6-16.5) 05/05/22 09:47 Plt Count 445 X10^3/uL (150.0-450.0) 05/05/22 09:47 MPV 7.1 fL (7.4-11.0) L 05/05/22 09:47 Neut % (Auto) 54.5 % (42.0-75.0) 05/05/22 09:47 Lymph % (Auto) 36.5 % (21.0-51.0) 05/05/22 09:47 [place] % (Auto) 7.5 % (0.0-13.0) 05/05/22 09:47 Eos % (Auto) 0.2 % (0.9-2.9) L 05/05/22 09:47 Baso % (Auto) 1.3 % (0.2-1.0) H 05/05/22 09:47 Neut # (Auto) 4.1 x10^3/uL (2.2-4.8) 05/05/22 09:47 Lymph # (Auto) 2.8 X10^3/uL (1.3-2.9) 05/05/22 09:47 [place] # (Auto) 0.6 x10^3/uL (0.3-0.8) 05/05/22 09:47 Eos # (Auto) 0.0 x10^3/uL (0.0-0.2) 05/05/22 09:47 Baso # (Auto) 0.1 X10^3/uL (0.0-0.1) 05/05/22 09:47 Absolute Nucleated RBC 0.0 /100WBC 05/05/22 09:47 PT 14.7 SECONDS (11.8-14.3) 05/05/22 09:47 INR Target Range - 05/05/22 09:47 INR 1.19 (0.8-1.3) 05/05/22 09:47 APTT 29.7 SECONDS (22.9-36.5) 05/05/22 09:47 PTT Comment - 05/05/22 09:47 D-Dimer 0.36 ug/ml (0.0-0.57) 05/05/22 09:47 Sodium 140 mmol/L (136-145) 05/05/22 09:47 Corrected Sodium TNP 05/05/22 09:47 Potassium 4.0 mmol/L (3.5-5.1) 05/05/22 09:47 Chloride 101 mmol/L (98-107) 05/05/22 09:47 Carbon Dioxide 29.8 mmol/L (21-32) 05/05/22 09:47 BUN 9 mg/dL (7-18) 05/05/22 09:47 Creatinine 0.88 mg/dL (0.55-1.02) 05/05/22 09:47 Est GFR (MDRD) Af Amer > 60 (>60) 05/05/22 09:47 Est GFR (MDRD) Non-Af > 60 (>60) 05/05/22 09:47 Glucose 107 mg/dL (65-99) H 05/05/22 09:47 Calcium 9.1 mg/dL (8.5-10.1) 05/05/22 09:47 Corrected Calcium TNP 05/05/22 09:47 Total Bilirubin 0.20 mg/dL (0.2-1.0) 05/05/22 09:47 AST 18 Units/L (15-37) 05/05/22 09:47 ALT 21 Units/L (12-78) 05/05/22 09:47 Alkaline Phosphatase 98 Units/L (46-116) 05/05/22 09:47 Creatine Kinase 77 Units/L (26-192) 05/05/22 09:47 Troponin I High Sens 4.2 ng/L (4.0-60.0) 05/05/22 09:47 Total Protein 7.2 g/dL (6.4-8.2) 05/05/22 09:47 Albumin 3.5 g/dL (3.4-5.0) 05/05/22 09:47 Globulin 3.7 g/dL (2.5-4.5) 05/05/22 09:47 Albumin/Globulin Ratio 0.9 Ratio (1.1-2.1) L 05/05/22 09:47 XRAY XRAY Interpreted by: Self X-ray Results: CXR: no acute process EKG Rate: 70 [place]: Normal Rhythm: NSR Opioid Opioid Risk Tool Age (Jann box if 16-45): Yes History of Preadolescent Sexual Abuse: No Total: 1 Total Score Risk Category: Low Risk Copyright: Landon GAUTAM predicting aberrant behaviors Discharge Plan Discharge Plan Patient Disposition: 09 ADMITTED INPATIENT Condition: Stable Prescriptions: No Action aspirin [Adult Low Dose Aspirin] 81 MG tablet,delayed release (DR/EC) 1 tab PO DAILY levothyroxine 75 tablet 1 tab PO DAILY Label Comments: lisinopril 10 tablet 1 tab PO DAILY Label Comments: escitalopram oxalate [Lexapro] 20 MG tablet 1 tab PO DAILY Misc Home Med [Patient's Home Medication] 1 EA Ea 1 tab PO DAILY Label Comments: CARTIA XT 120MG PO DAILY famotidine [Pepcid] 40 MG tablet 40 mg PO BID Qty: 60 1RF Rx Instructions: TAKE ONE TABLET TWICE A DAY pantoprazole 40 MG tablet,delayed release (DR/EC) 40 mg PO BID Qty: 60 1RF Rx Instructions: TAKE ONE TABLET TWICE A DAY hyoscyamine sulfate 30 ML elixir 15 ml PO TID Qty: 90 1RF Rx Instructions: TAKE ONE TABLESPOON BY MOUTH THREE TIMES A DAY NEEDED FOR ABDOMINAL PAIN ciprofloxacin HCl 500 MG tablet 500 mg PO Q12H Qty: 20 0RF Rx Instructions: take one tablet twice a day for 10 days Health Concerns: Post Hospitalization: new medications and changes needed to prevent readmission or further decline. Pt educated and given instructions on all concerns. Plan of Treatment: Continue with present treatment and follow up plan. Pt is to keep follow up appointment as instructed and take medications as ordered. Orders to Discharge Patient Discharge Orders: Transfer (Routine); Ordered 05/05/22 Ordered By: Candy Johnson Follow ups/Referrals Follow ups/Referrals: Suly Flores [Primary Care Provider] - 3 days
[2022-05-05 10:07] LABS: BASOPHILS # (AUTO) 0.1 X10^3/uL (0.0-0.1); BASOPHILS % (AUTO) 1.3 % (0.2-1.0); EOSINOPHILS % (AUTO) 0.2 % (0.9-2.9); HEMATOCRIT 33.7 % (36.0-47.0); HEMOGLOBIN 11.2 g/dL (12.0-16.0); LYMPHOCYTES # (AUTO) 2.8 X10^3/uL (1.3-2.9); LYMPHOCYTES % (AUTO) 36.5 % (21.0-51.0); MEAN CORPUSCULAR HEMOGLOBIN 26.8 pg (27.0-34.0); MEAN CORPUSCULAR HGB CONC 33.3 g/dL (33.0-35.0); MEAN CORPUSCULAR VOLUME 80.5 fL (80.0-100.0); MEAN PLATELET VOLUME 7.1 fL (7.4-11.0); MONOCYTES # (AUTO) 0.6 x10^3/uL (0.3-0.8); MONOCYTES % (AUTO) 7.5 % (0.0-13.0); NEUTROPHILS # (AUTO) 4.1 x10^3/uL (2.2-4.8); NEUTROPHILS % (AUTO) 54.5 % (42.0-75.0); RED BLOOD COUNT 4.19 X10^6/uL (3.5-5.4); RED CELL DISTRIBUTION WIDTH 15.3 % (11.6-16.5); WHITE BLOOD COUNT 7.6 X10^3/uL (3.6-10.0)
[2022-05-05 10:13] LABS: INR 1.19 (0.8-1.3)
[2022-05-05] MEDS ORDERED: ZOFRAN INJ 4 MG VIAL IVP ONE (10:16)
[2022-05-05] MEDS ORDERED: MORPHINE SULFATE INJ 2 MG INJ IVP ONE (10:17)
[2022-05-05] MEDS ORDERED: ZOFRAN INJ 4 MG VIAL ONE (10:20)
[2022-05-05] MEDS ORDERED: MORPHINE SULFATE INJ 2 MG INJ ONE (10:20)
[2022-05-05 10:21] LABS: ALANINE AMINOTRANSFERASE 21 Units/L (12-78); ALBUMIN 3.5 g/dL (3.4-5.0); ALKALINE PHOSPHATASE 98 Units/L (46-116); ASPARTATE AMINO TRANSFERASE 18 Units/L (15-37); BLOOD UREA NITROGEN 9 mg/dL (7-18); CALCIUM 9.1 mg/dL (8.5-10.1); CARBON DIOXIDE 29.8 mmol/L (21-32); CHLORIDE 101 mmol/L (98-107); CREATINE KINASE 77 Units/L (26-192); CREATININE 0.88 mg/dL (0.55-1.02); SODIUM 140 mmol/L (136-145); TOTAL PROTEIN 7.2 g/dL (6.4-8.2); eGFR NON BLACK RACES > 60 (>60)
--- NOTE | 2022-05-05 12:45 | DR.CP ---
HPI Time Seen Time Seen by Provider: 05/05/22 09:58 PCP Primary Care Physician: Kusum Alejandro Complaint Chief Complaint:: Patient states she started having left jaw pain last PM at 2300 hrs. Woke this am and started having chest pain and pressure left midc lavicular radiating to left axillary. Patient states she had nausea last PM but it subsided anddenies at present. COVID-19 Coronavirus risk:travel/contact w/high risk person: No Has patient experienced Coronavirus symptoms: No Source History Provided: Patient and Family Member Mode of Arrival Mode of Arrival: Ambulatory Timing Onset of Chief Complaint: 05/04/22 Location Chest Pain Radiation Location: Left Jaw and Left Shoulder Associated Signs and Symptoms Associated Signs and Symptoms: None PMH PMH Past Medical History: Yes Past Medical History: Hypertension and Hypothyroidism Past Surgical History: Yes Surgical History: Family History History of Family Medical Conditions: Yes Family Medical History: Diabetes Mellitus, Cancer, [place], Coronary Artery Disease, Heart Failure and Hypertension Social History Does patient currently use any type of tobacco product: No Have you used tobacco products in the last 12 months: No Type of Tobacco Use: None Does any household member use tobacco: No Alcohol Use: None Do you use any recreational Drugs:: No Lives With: Spouse Lives Where: Home Travel Risk Coronavirus risk:travel/contact w/high risk person: No Has patient experienced Coronavirus symptoms: No Infectious screening In the last 2 months have you had wt loss of >10#?: NO Have you had fever, night sweats or hemotysis?: No Have you traveled outside the country in the last 6 months?: No Isolation: Standard PE Vitals Vitals: Temperature 98.2 F Pulse Rate 71 Respiratory Rate 25 Blood Pressure [Left Arm] 113/57 Blood Pressure 116/63 O2 Sat by Pulse Oximetry 100 ROR Labs Reviewed Result Diagrams: 05/05/22 09:47 05/05/22 09:47 Laboratory: WBC 7.6 X10^3/uL (3.6-10.0) 05/05/22 09:47 RBC 4.19 X10^6/uL (3.5-5.4) 05/05/22 09:47 Hgb 11.2 g/dL (12.0-16.0) L 05/05/22 09:47 Hct 33.7 % (36.0-47.0) L 05/05/22 09:47 MCV 80.5 fL (80.0-100.0) 05/05/22 09:47 MCH 26.8 pg (27.0-34.0) L 05/05/22 09:47 MCHC 33.3 g/dL (33.0-35.0) 05/05/22 09:47 RDW 15.3 % (11.6-16.5) 05/05/22 09:47 Plt Count 445 X10^3/uL (150.0-450.0) 05/05/22 09:47 MPV 7.1 fL (7.4-11.0) L 05/05/22 09:47 Neut % (Auto) 54.5 % (42.0-75.0) 05/05/22 09:47 Lymph % (Auto) 36.5 % (21.0-51.0) 05/05/22 09:47 [place] % (Auto) 7.5 % (0.0-13.0) 05/05/22 09:47 Eos % (Auto) 0.2 % (0.9-2.9) L 05/05/22 09:47 Baso % (Auto) 1.3 % (0.2-1.0) H 05/05/22 09:47 Neut # (Auto) 4.1 x10^3/uL (2.2-4.8) 05/05/22 09:47 Lymph # (Auto) 2.8 X10^3/uL (1.3-2.9) 05/05/22 09:47 [place] # (Auto) 0.6 x10^3/uL (0.3-0.8) 05/05/22 09:47 Eos # (Auto) 0.0 x10^3/uL (0.0-0.2) 05/05/22 09:47 Baso # (Auto) 0.1 X10^3/uL (0.0-0.1) 05/05/22 09:47 Absolute Nucleated RBC 0.0 /100WBC 05/05/22 09:47 PT 14.7 SECONDS (11.8-14.3) 05/05/22 09:47 INR Target Range - 05/05/22 09:47 INR 1.19 (0.8-1.3) 05/05/22 09:47 APTT 29.7 SECONDS (22.9-36.5) 05/05/22 09:47 PTT Comment - 05/05/22 09:47 D-Dimer 0.36 ug/ml (0.0-0.57) 05/05/22 09:47 Sodium 140 mmol/L (136-145) 05/05/22 09:47 Corrected Sodium TNP 05/05/22 09:47 Potassium 4.0 mmol/L (3.5-5.1) 05/05/22 09:47 Chloride 101 mmol/L (98-107) 05/05/22 09:47 Carbon Dioxide 29.8 mmol/L (21-32) 05/05/22 09:47 BUN 9 mg/dL (7-18) 05/05/22 09:47 Creatinine 0.88 mg/dL (0.55-1.02) 05/05/22 09:47 Est GFR (MDRD) Af Amer > 60 (>60) 05/05/22 09:47 Est GFR (MDRD) Non-Af > 60 (>60) 05/05/22 09:47 Glucose 107 mg/dL (65-99) H 05/05/22 09:47 Calcium 9.1 mg/dL (8.5-10.1) 05/05/22 09:47 Corrected Calcium TNP 05/05/22 09:47 Total Bilirubin 0.20 mg/dL (0.2-1.0) 05/05/22 09:47 AST 18 Units/L (15-37) 05/05/22 09:47 ALT 21 Units/L (12-78) 05/05/22 09:47 Alkaline Phosphatase 98 Units/L (46-116) 05/05/22 09:47 Creatine Kinase 77 Units/L (26-192) 05/05/22 09:47 Troponin I High Sens 4.2 ng/L (4.0-60.0) 05/05/22 09:47 Total Protein 7.2 g/dL (6.4-8.2) 05/05/22 09:47 Albumin 3.5 g/dL (3.4-5.0) 05/05/22 09:47 Globulin 3.7 g/dL (2.5-4.5) 05/05/22 09:47 Albumin/Globulin Ratio 0.9 Ratio (1.1-2.1) L 05/05/22 09:47 Opioid Opioid Risk Tool Age (Jann box if 16-45): Yes History of Preadolescent Sexual Abuse: No Total: 1 Total Score Risk Category: Low Risk Copyright: [facility] predicting aberrant behaviors Discharge Plan Discharge Plan Patient Disposition: 09 ADMITTED INPATIENT Condition: Stable Prescriptions: No Action aspirin [Adult Low Dose Aspirin] 81 MG tablet,delayed release (DR/EC) 1 tab PO DAILY levothyroxine 75 tablet 1 tab PO DAILY Label Comments: lisinopril 10 tablet 1 tab PO DAILY Label Comments: escitalopram oxalate [Lexapro] 20 MG tablet 1 tab PO DAILY Misc Home Med [Patient's Home Medication] 1 EA Ea 1 tab PO DAILY Label Comments: CARTIA XT 120MG PO DAILY famotidine [Pepcid] 40 MG tablet 40 mg PO BID Qty: 60 1RF Rx Instructions: TAKE ONE TABLET TWICE A DAY pantoprazole 40 MG tablet,delayed release (DR/EC) 40 mg PO BID Qty: 60 1RF Rx Instructions: TAKE ONE TABLET TWICE A DAY hyoscyamine sulfate 30 ML elixir 15 ml PO TID Qty: 90 1RF Rx Instructions: TAKE ONE TABLESPOON BY MOUTH THREE TIMES A DAY NEEDED FOR ABDOMINAL PAIN ciprofloxacin HCl 500 MG tablet 500 mg PO Q12H Qty: 20 0RF Rx Instructions: take one tablet twice a day for 10 days Health Concerns: Post Hospitalization: new medications and changes needed to prevent readmission or further decline. Pt educated and given instructions on all concerns. Plan of Treatment: Continue with present treatment and follow up plan. Pt is to keep follow up appointment as instructed and take medications as ordered. Orders to Discharge Patient Discharge Orders: Transfer (Routine); Ordered 05/05/22 Ordered By: Candy Johnson Follow ups/Referrals Follow ups/Referrals: Suly Flores [Primary Care Provider] - 3 days
--- NOTE | 2022-05-05 13:39 | RAD ---
HISTORYCHEST PAINSTUDYCHEST, 1 VIEWCOMPARISONNoneFINDINGSThe cardiomediastinal silhouette is normal in size. No acute airspace disease. No pneumothorax or effusion. The bony thorax appears intact.IMPRESSIONNo acute cardiopulmonary disease.Electronically signed by: ARABELLA GOVEA (May 05, 2022 13:38:46)
[2022-05-05] MEDS ORDERED: MORPHINE SULFATE INJ 2 MG INJ IVP PRN (13:44)
[2022-05-05] MEDS ORDERED: NITROSTAT SL PRN (13:44)
[2022-05-05] MEDS ORDERED: NS 1,000 ML IV 1,000 ML ONE (13:48)
[2022-05-05] MEDS: NS 1,000 ML IV 1,000 ML IV SCH (13:51)
--- NOTE | 2022-05-05 13:56 | EKG ---
Test Reason : chest pain Blood Pressure : */* mmHG Vent. Rate : 60 BPM Atrial Rate : 60 BPM P-R Int : 184 ms QRS Dur : 82 ms QT Int : 436 ms P-R-T Axes : 22 5 5 degrees QTc Int : 436 ms Normal sinus rhythm Normal ECG When compared with ECG of 05-MAY-2022 09:31, (Unconfirmed) No significant change was found Confirmed by Maximilian Oconnell ([id number]) on 05/05/2022 2:39:49 PM Referred By: Confirmed By: Maximilian Oconnell
[2022-05-05 18:41] LABS: CREATINE KINASE 63 Units/L (26-192)
[2022-05-05] MEDS ORDERED: MELATONIN PO PRN (18:55)
--- NOTE | 2022-05-05 19:48 | EKG ---
Test Reason : Chest pain Blood Pressure : */* mmHG Vent. Rate : 70 BPM Atrial Rate : 70 BPM P-R Int : 172 ms QRS Dur : 82 ms QT Int : 410 ms P-R-T Axes : 30 5 4 degrees QTc Int : 442 ms Normal sinus rhythm Normal ECG When compared with ECG of 05-MAY-2022 13:48, No significant change was found Confirmed by Maximilian Oconnell ([id number]) on 05/08/2022 8:38:32 AM Referred By: Confirmed By: Maximilian Oconnell
[2022-05-05] MEDS: PEPCID TAB 20 MG PO SCH (21:37)
--- NOTE | 2022-05-06 01:51 | EKG ---
Test Reason : Chest pain Blood Pressure : */* mmHG Vent. Rate : 61 BPM Atrial Rate : 61 BPM P-R Int : 162 ms QRS Dur : 78 ms QT Int : 440 ms P-R-T Axes : 5 18 22 degrees QTc Int : 442 ms Normal sinus rhythm Normal ECG When compared with ECG of 05-MAY-2022 19:42, (Unconfirmed) No significant change was found Confirmed by Maximilian Oconnell ([id number]) on 05/08/2022 8:37:54 AM Referred By: Confirmed By: Maximilian Oconnell
[2022-05-06] MEDS: NS 1,000 ML IV 1,000 ML IV SCH (03:11)
[2022-05-06 05:36] LABS: BASOPHILS % (AUTO) 0.5 % (0.2-1.0); EOSINOPHILS % (AUTO) 0.2 % (0.9-2.9); HEMATOCRIT 30.3 % (36.0-47.0); HEMOGLOBIN 10.1 g/dL (12.0-16.0); LYMPHOCYTES # (AUTO) 2.9 X10^3/uL (1.3-2.9); LYMPHOCYTES % (AUTO) 39.9 % (21.0-51.0); MEAN CORPUSCULAR HGB CONC 33.4 g/dL (33.0-35.0); MEAN PLATELET VOLUME 7.3 fL (7.4-11.0); MONOCYTES # (AUTO) 0.6 x10^3/uL (0.3-0.8); MONOCYTES % (AUTO) 7.7 % (0.0-13.0); NEUTROPHILS # (AUTO) 3.8 x10^3/uL (2.2-4.8); NEUTROPHILS % (AUTO) 51.7 % (42.0-75.0); RED BLOOD COUNT 3.74 X10^6/uL (3.5-5.4); RED CELL DISTRIBUTION WIDTH 15.3 % (11.6-16.5); WHITE BLOOD COUNT 7.3 X10^3/uL (3.6-10.0)
[2022-05-06 05:57] LABS: ALANINE AMINOTRANSFERASE 19 Units/L (12-78); ALBUMIN 2.9 g/dL (3.4-5.0); ALKALINE PHOSPHATASE 80 Units/L (46-116); ASPARTATE AMINO TRANSFERASE 14 Units/L (15-37); BLOOD UREA NITROGEN 10 mg/dL (7-18); CALCIUM 8.6 mg/dL (8.5-10.1); CARBON DIOXIDE 27.6 mmol/L (21-32); CHLORIDE 105 mmol/L (98-107); CHOL/HDL RATIO 4.4 (0.0-5.0); CHOLESTEROL 166 mg/dL (0-200); COR CA(FOR HYPOALB) 9.5 mg/dL (8.5-10.1); CREATININE 0.78 mg/dL (0.55-1.02); HDL CHOLESTEROL 38 mg/dL (40-60); MAGNESIUM 1.8 mg/dL (2.0-2.9); SODIUM 139 mmol/L (136-145); TOTAL PROTEIN 6.1 g/dL (6.4-8.2); TRIGLYCERIDES 76 mg/dL (0-150); eGFR NON BLACK RACES > 60 (>60)
[2022-05-06 06:04] LABS: INR 1.12 (0.8-1.3)
--- NOTE | 2022-05-06 07:08 | RAD ---
HISTORYCHEST PAINSTUDYCHEST, 1 [id number]/01/2023.TECHNIQUEPA or AP view of the chestFINDINGSThe cardiac and mediastinal contours are within normal limits. The lungs are clear without focal consolidation or segmental collapse. No pleural effusion or pneumothorax. Soft tissue attenuation limits evaluation.IMPRESSIONNo acute pulmonary process.Electronically signed by: Cristino Cunningham (May 06, 2022 07:07:55)
[2022-05-06] MEDS ORDERED: MICRO K EXTEN CAP 10 MEQ PO PRN (07:46)
[2022-05-06] MEDS ORDERED: KLOR-CON PO PRN (07:46)
[2022-05-06] MEDS ORDERED: MAGNESIUM SULFATE 1 GRAM/100 mL PREMIX 1 G/100 ML BAG IV PRN (07:46)
[2022-05-06] MEDS ORDERED: POTASSIUM CHL 40 MEQ/NS 0.45% 500 ML IV PRN (07:46)
[2022-05-06] MEDS ORDERED: K-RIDER 10 MEQ/NS 100 ML 10 MEQ/100 ML BAG IV PRN (07:46)
[2022-05-06] MEDS ORDERED: K-DUR TAB 20 MEQ PO PRN (07:46)
[2022-05-06] MEDS ORDERED: POTASSIUM CHLORIDE LIQ 20 MEQ UDC PO PRN (07:46)
[2022-05-06] MEDS ORDERED: POTASSIUM CHL 60 MEQ/NS 0.45% 500 ML IV PRN (07:46)
[2022-05-06] MEDS ORDERED: LEXAPRO ONE (08:43)
[2022-05-06] MEDS: PEPCID TAB 20 MG PO SCH (08:46)
[2022-05-06] MEDS ORDERED: LEXAPRO PO SCH (09:00)
[2022-05-06] MEDS ORDERED: ZESTRIL TAB 10 MG PO SCH (09:00)
[2022-05-06] MEDS ORDERED: SYNTHROID 75 mcg TAB PO SCH (09:00)
[2022-05-06] MEDS ORDERED: ELIQUIS PO SCH (09:45)
[2022-05-06] MEDS ORDERED: VITAMIN D (1.25MG) PO SCH (09:45)
[2022-05-06] MEDS ORDERED: TYLENOL #3 TAB (W/CODEINE) PO PRN (09:51)
[2022-05-06] MEDS ORDERED: CARDIZEM CD 120 MG 24-HR PO SCH (10:00)
[2022-05-06 12:04] VITALS: BP 113/56
--- NOTE | 2022-05-24 10:51 | DR.CARTERS ---
Short Stay Summary - Admission Date Date of Admission: 05/05/22 - Discharge Date Discharge Date: 05/06/22 - Admission Diagnoses (1) Chest pain, rule out acute myocardial infarction Status: Acute - Hospital Course Hospital Course: IS A 41 YEAR OLD PATIENT OF [employer]. SHE PRESENTED TO THE ER WITH COMPLAINTS OF PALPITATIONS AHD CHEST PAIN. SHE REPORTED THAT SHE INITIALLY BEGAN HAVING LEFT JAW PAIN ONE DAY PRIOR TO ARRIVAL. SHE REPORTS THAT LATER IN THE DAY, SHE BEGAN HAVING PALPITATIONS AND PAIN TO THE MIDSTERNAL AREA WITH RADIATION TO THE LEFT ARM AND LEFT AXILLA. SHE DESCRIBED PAIN SHARP. SHE RATED PAIN A 8/10. ASSOCIATED SYMPTOMS INCLUDE NAUSEA. SHE DENIED FEVER, COUGH, VOMITING, SHORTNESS OF BREATH, OR BACK PAIN. SHE DENIES A HISTORY OF IN. HER PMH INCLUDES: HTN, HYPOTHYROIDISM, HX OF DVT, AND . SHE HAS BEEN TAKING ELIQUIS FOR THE PAST 3-4 YEARS DUE TO HX OF DVT. SHE DENIES USE OF TOBACCO OR ALCOHOL PRODUCTS. ON ARRIVAL TO THE HOSPITAL, VITALS WERE: 98.2-72-20-99%-138/79. LABS WERE OBTAINED. WBC 7.6, RBC 4.19, HGB 11.2, HCT 33.7, PLT COUNT 445, PT 14.7, INR 1.19, PTT 29.7, D-DIMER 0.36, SODIUM 140, POTASSIUM 4.0, CHLORIDE 101, CARBON DIOXIDE 29.8, BUN 9, CREATININE 0.88, GLUCOSE 107, CALCIUM 9.1, AST 18, ALT 21, ALK PHOS 98, CREATININE KINASE 77, TROPONIN 4.2, TOTAL PROTEIN 7.2, ALBUMIN 3.5. A CHEST XRAY WAS OBTAINED AND REVEALED: NO ACUTE CARDIOPULMONARY DISEASE. EKG REVEALED: NORMAL SINUS RHYTHM. NORMAL ECG. HR 70 BPM. IN THE ER, SHE WAS GIVEN MORPHINE SULFATE 1MG IV X 1 DOSE, ASPIRIN 162MG PO, AND ZOFRAN 4MG IV X 1 DOSE. SHE WAS ADMITTED TO THE HOSPITAL OBSERVATION STATUS FOR FURTHER EVALUATION AND TREATMENT OF CHEST PAIN RULE OUT ACUTE IN. SHE WAS STARTED ON NORMAL SALINE AT 75 ML/HR, PEPCID 20MG PO BID, MORPHINE SULFATE 2MG IV Q2H PRN, NITROGLYCERINE 0.4MG SL Q5M PRN, ESCITALOPRAM 20MG DAILY, LISINOPRIL 20MG DAILY, LEVOTHYROXINE 75MCG DAILY, MELATONIN 5MG HS PRN, AND THE POTASSIUM AND MAGNESIUM PROTOCOLS. WE PLANNED TO OBTAIN SERIAL CARDIAC ENZYMES AND EKGS. OTHERWISE, WE PLANNED TO FOLLOW-UP WITH AM LABS AND CONTINUE TO MONITOR. ON THE MORNING FOLLOWING ADMISSION, PATIENT WAS ALERT AND ORIENTED, LYING IN BED ON MORNING ROUNDS. SHE DENIED CHEST PAIN OR PALPITATIONS UPON ROUNDS OR THROUGHOUT THE NIGHT. UPON EXAMINATION, HEART IS REGULAR IN RATE AND RHYTHM. BILATERAL LUNGS ARE CLEAR TO AUSCULTATION. ABDOMEN IS ROUND, SOFT, AND NON- TENDER WITH NORMAL BOWEL SOUNDS NOTED IN ALL QUADRANTS. NO UPPER OR LOWER EXTREMITY EDEMA NOTED. HER VITALS THIS MORNING WERE: 98.0-64-18-99%-116/64. LABS WERE OBTAINED. WBC 7.3, RBC 3.74, HGB 10.1, HCT 30.3, PLT COUNT 382, PT 14.1, INR 1.12, PTT 27.1, SODIUM 139, POTASSIUM 4.0, CHLORIDE 105, CARBON DIOXIDE 27.6, BUN 10, CREATININE 0.78, GLUCOSE 99, CALCIUM 8.6, MAGNESIUM 1.8, TOTAL BILI 0.10, AST 14, ALT 19, ALK PHOS 80, TOTAL PROTEIN 6.1, ALBUMIN 2.9, TRIGLYCERIDES 76, CHOLESTEROL 166, LDL 113, HDL 38. HER CARDIAC ENZYMES HAVE REMAINED NORMAL. NO CHANGES NOTED TO EKGS. TODAYS CHEST XRAY REVEALED: NO ACUTE CARDIOPULMONARY PROCESS. WE PLANNED FOR DISCHARGE. INSTRUCTIONS FOR MEDICATIONS AND FOLLOW-UP WERE DISCUSSED WITH PATIENT AND HER FAMILY. SHE WAS GIVEN NEW PRESCRIPTIONS FOR ECOTRIN 81MG DAILY AND ROSUVASTATIN 10MG HS. SHE WAS INSTRUCTED TO FOLLOW-UP WITH HER PCP, LIANET ACEVES ON 05/13/22. SHE WAS ALSO REFERRED TO , SITE [employer]IABILITY [facility]INE[facility]. PATIENT WAS DISCHARGED HOME WITH HER FAMILY IN STABLE CONDITION. TIME SPENT ON CLINICAL ASSESSMENT, REVIWING LABS AND IMAGING, DECISION MAKING, DISCHARGE INSTRUCTIONS, PREPARING DISCHARGE PAPERS, AND DOCUMENTATION GREATER THAN 75 MINUTES. - Discharge Medications Discharge Medications: Home Medication List acetaminophen 300 mg-codeine 60 mg tablet 1 tab PO TID PRN 05/05/22 [History] apixaban 2.5 mg tablet (Eliquis) 2.5 mg PO BID 05/05/22 [History] diltiazem HCl 120 mg capsule,24 hr,extended release 120 mg PO QDAY 05/05/22 [History] ergocalciferol (vitamin D2) 1,250 mcg (50,000 unit) capsule 1 cap PO QWEEK 05/05/22 [History] aspirin 81 mg tablet,delayed release (Ecotrin Low Strength) 81 mg PO QDAY #30 tabs 05/06/22 [Rx] rosuvastatin 10 mg tablet 10 mg PO HS #30 tabs 05/06/22 [Rx] Prescriptions: aspirin [Ecotrin Low Strength] Shailesh Jaime rosuvastatin Shailesh Jaime - Discharge Plan Disposition: HOME, SELF-CARE Condition: Stable Prescriptions: aspirin [Ecotrin Low Strength] 81 mg PO QDAY #30 tabs rosuvastatin 10 mg PO HS #30 tabs - Follow up/Referrals Follow up/Referrals: Tony Baxter [STAFF PHYSICIAN] - (Referral sent on 05/06/22 - Office will call with appointment.) ALO MASTERSON [Nurse Practitioner] - 05/13/22 9:00 am - Instructions Instructions: Nonspecific Chest Pain, Adult, [id number], Aspirin and Your Heart Additional Instructions: DIET TOLERATED. ACTIVITY TOLERATED.
== END 2022-05-06 15:25 | disposition home or self-care (01) ==
LOC: ER 09:21 → MED/SURG 09:21
PROVIDERS: ADMIT Internal Medicine; ATTEND Internal Medicine
DX: I10 Essential (primary) hypertension; E03.8 Other specified hypothyroidism; Z86.718 Personal history of other venous thrombosis and embolism; R68.84 Jaw pain; I25.2 Old myocardial infarction; R79.89 Other specified abnormal findings of blood chemistry; R07.89 Other chest pain